=== PATIENT | male | born 1960 | race Caucasian/White ===

== ENCOUNTER 2020-12-10 11:38 | Outpatient (REF) | payer BC, SELFPAY ==
[2020-12-10 13:34] LABS: Uric Acid 7.9 mg/dL (3.4-7.0)
== END 2020-12-10 11:39 | disposition home or self-care (01) ==
LOC: HO.MANLDS 11:38
PROVIDERS: PCP Physician Assistant; Visit Provider Physician Assistant
DX: M79.674 Pain in right toe(s) (principal)
CPT/HCPCS: 36415; 84550